=== PATIENT | male | born 1955 | race Caucasian/White ===

== ENCOUNTER → 2017-03-09 | Day surgery (SDC) | payer MEDICARE, OTHER | END | disposition home or self-care (01) | LOC: FAS 10:18 | DX: Z43.1 Encounter for attention to gastrostomy (principal); E46 Unspecified protein-calorie malnutrition; I10 Essential (primary) hypertension; I47.1 Supraventricular tachycardia; I49.3 Ventricular premature depolarization; E03.9 Hypothyroidism, unspecified; F41.9 Anxiety disorder, unspecified; F32.9 Major depressive disorder, single episode, unspecified; J44.9 Chronic obstructive pulmonary disease, unspecified; J45.909 Unspecified asthma, uncomplicated; K21.9 Gastro-esophageal reflux disease without esophagitis; M19.90 Unspecified osteoarthritis, unspecified site; Z86.718 Personal history of other venous thrombosis and embolism; Z86.711 Personal history of pulmonary embolism; Z87.891 Personal history of nicotine dependence; Z85.89 Personal history of malignant neoplasm of other organs and systems; Z88.5 Allergy status to narcotic agent; Z88.6 Allergy status to analgesic agent; Z90.89 Acquired absence of other organs; Z82.61 Family history of arthritis; Z82.49 Family history of ischemic heart disease and other diseases of the circulatory system; Z82.5 Family history of asthma and other chronic lower respiratory diseases; Z80.9 Family history of malignant neoplasm, unspecified; Z79.891 Long term (current) use of opiate analgesic; Z79.01 Long term (current) use of anticoagulants; Z79.899 Other long term (current) drug therapy; Z98.890 Other specified postprocedural states | CPT/HCPCS: 74000; J2704; Q9962 ==

== ENCOUNTER 2022-04-27 15:18 | Emergency (ER) | payer MEDICARE, OTHER ==
[~2022-04-27 15:18] MED LIST: CENTRUM SILVER1 EAC1 PO; CITALOPRAM HBR20 MG PO; COUMADIN6 MG PO; FEOSOL325 M1 PO; FLEXERIL10 MG PO; FLONASE ALLER15.8 ML; NEURONTIN300 MG PO; NORCO 5-325 TA1 EACH PO; PROAIR HFA8.5 GM INH; ROBAXIN500 MG PO; SINGULAIR10 MG PO; SYNTHROID112 MCG PO; TOPROL XL 25MG25 MG PO; VITAMIN B-121000 MC1 PO; VITAMIN D3400 UNIT PO; ZYRTEC10 M3 PO
[2022-04-27 16:34] LABS: BASOPHIL 0.8 % (0-2); BILIRUBIN NEGATIVE (NEGATIVE); BLOOD NEGATIVE Ery/uL (NEGATIVE); CLARITY CLEAR (CLEAR); COLOR YELLOW (YELLOW); EOSINOPHIL 0.3 % (0-7); GLUCOSE (U) NORMAL (NORMAL); HCT 41.8 % (42.0-52.0); HGB 13.5 g/dl (13.2-18.0); LEUKOCYTES NEGATIVE Leu/uL (NEGATIVE); MCHC 32.3 g/dL (32.0-36.0); MCV 102.2 fL (78.0-100.0); MONOCYTE 11.8 % (0-12); MPV 11.1 fL (6.0-9.5); NEUTROPHIL 76.6 % (41-80); NITRITE NEGATIVE (NEGATIVE); NRBC 0; PLT 183 K/uL (150-400); PROTEIN 2+ mg/dL (NEGATIVE); RBC 4.09 M/uL (4.70-6.00); RDW 13.3 % (11.5-14.0); UROBILINOGEN 0.2 mg/dL (0.2-1.0); WBC 3.9 K/uL (4.0-10.5)
[2022-04-27 16:45] LABS: MUCOUS TRACE; URINARY RBC RARE
[2022-04-27 16:50] LABS: ALBUMIN 3.9 g/dL (3.4-5.0); BILIRUBIN - TOTAL 0.3 mg/dL (0.2-1.0); BUN/CREAT RATIO (CALC) 26.2 RATIO; CREATININE 0.84 mg/dL (0.67-1.17); POTASSIUM 4.3 mmol/L (3.5-5.1); TOTAL PROTEIN 6.9 g/dL (6.4-8.2)
[2022-04-27 16:56] LABS: LACTIC ACID 1.8 mmol/L (0.4-1.9)
[2022-04-27] MEDS ORDERED: VENTOLIN HFA18 GM INH (17:50)
[2022-04-27] MEDS ORDERED: ONDANSETRON HCL4 MG PEG (17:50)
[2022-04-27] MEDS ORDERED: DECADRON6 MG PEG (17:50)
== END 2022-04-27 18:00 | disposition home or self-care (01) ==
LOC: FER 15:18
PROVIDERS: Physician Assistant
DX: U07.1 COVID-19 (principal); I10 Essential (primary) hypertension; Z88.6 Allergy status to analgesic agent; Z87.891 Personal history of nicotine dependence; Z79.01 Long term (current) use of anticoagulants; Z79.899 Other long term (current) drug therapy
CPT/HCPCS: 36415; 71045; 80053; 81001; 83605; 84145; 85025; 87040; 94640; 94664; 96372; J2405; J2930